=== PATIENT | female | born 1980 | race Caucasian/White ===

== ENCOUNTER 2021-11-17 12:05 | Emergency (ER) | payer OTHER, MEDICAID, SELFPAY ==
[2021-11-17 12:11] VITALS: BP 113/74; PULSE 88; RESP 20; TEMP 36.9; O2SAT 98; BMI 42.3
--- NOTE | 2021-11-17 12:59 | ED_ITS ---
HPI - Dizziness <Alexia Unique [facility] - Last Filed: 11/17/21 16:33> General Chief Complaint: Dizziness Stated Complaint: weak/dizzy Time Seen by Provider: 11/17/21 12:20 Source: patient Mode of arrival: Ambulatory History of Present Illness HPI Narrative: This is a 41-year-old female with history of lupus, PKU, PTSD, anxiety and depression who presents to the emergency department while in town caring for her mother with complaint of episodes of dizziness that have been occurring and causing her to feel lightheaded over the last month. She endorses blurred vision at times, she denies any headache, trauma, fever, abdominal pain, nausea vomiting, dysuria, possibility of . She reports that she has had her tubes tied, she is , reports that she has been under a lot of stress recently, becomes tearful and reports that she is tired of being ?sick when ?all the time. She denies any pain, endorses feeling anxious, has had episodes where she feels lightheaded and like she might faint. She reports that she has been staying hydrated and drinking plenty of water, eating food, she has not had any changes to her bowels or her urination. She denies any abnormal vaginal discharge, denies any hearing changes. She endorses a history of anxiety, states that her depression is likely under treated, gets her care in [facility] from Dr. Nguyen and has [employer] insurance. She reports that she sees Taylor Reynaga who is a family care provider in [place] in the past. She denies any recent fever, COVID symptoms, chest pain, shortness of breath, numbness or tingling or other complaint. Related Data Previous Rx's Medication Instructions Recorded EPINEPHRINE (#EPI EZ PEN) 1 mg IM ONCE ##1 09/15/11 methylphenidate HCl 10 mg tablet 10 mg PO SEE INSTRUCTIONS #90 tabs 03/10/16 (Ritalin) alprazolam 0.5 mg tablet (Xanax) 0.5 mg PO TIDP PRN #5 tabs 03/18/16 topiramate 25 mg tablet (Topamax) 25 mg PO HS #30 tabs 03/29/16 sumatriptan succinate 100 mg 100 mg PO PRN PRN #9 tabs 04/03/16 tablet (Imitrex) prednisone 20 mg tablet 0 PO QDAY #7 tabs 04/04/16 alprazolam 0.5 mg tablet 0.5 mg PO BEDTIME PRN anxiety #10 11/17/21 tabs cephalexin 500 mg tablet 500 mg PO BID 5 days #10 tabs 11/17/21 Allergies Allergy/AdvReac Type Severity Reaction Status Date / Time azithromycin [AZITHROMYCIN] Allergy Unknown Unverified 08/08/17 12:09 Influenza Virus Vaccines Allergy Unknown Unverified 08/08/17 12:09 [INFLUENZA VIRUS VACCINES] Review of Systems <STEPHANIE Genao - Last Filed: 11/17/21 16:33> Review of Systems Narrative: General: denies fever, chills, malaise, sweats, fatigue Head/Neck: denies headache, neck pain, endorses dizziness Eyes: denies visual changes, eye pain reports has had blurred vision in the past Cardio: denies chest pain, palpitations, edema Respiratory: denies dyspnea, cough, orthopnea GI: denies abdominal pain, nausea, vomiting, or diarrhea : denies dysuria, hematuria, urinary retention, frequency or incontinence MSK: denies joint pain, muscle weakness Skin: denies rash, itching, skin lesions or other Neuro: denies numbness, tingling Patient History <STEPHANIE Genao - Last Filed: 11/17/21 16:33> Surgical History Status post tubal ligation Social History Smoking Status: Never smoker Smoking Status: Never smoker alcohol intake frequency: 0-2 drinks per day Exam <STEPHANIE Genao - Last Filed: 11/17/21 16:33> Narrative Exam Narrative: Independently reviewed vitals signs and nursing notes. General: cooperative, comfortable, in no acute distress, well groomed, anxious, tearful, endorses stress Head: atraumatic, symmetrical facial expressions Neck: supple Eyes: equal round and reactive, EOMI, conjunctiva normal Nose: nares patent, no rhinorrhea Mouth/Throat: moist mucus membranes Cardiovascular: regular rate and rhythm, no peripheral edema, warm extremities Respiratory: normal effort, able to speak in complete sentences, no audible whe ezing, stridor, or rales. No retractions or tachypnea. GI: abdomen soft, nontender to palpation, nondistended, no masses, no exquisite tenderness with exam, without guarding or rebound. MSK: moves all extremities, neurovascularly intact, no weakness, normal tone Skin: brisk capillary refill, no rash, no erythema Neuro: normal speech and cognition, A&O x3 Psych: mental status is grossly normal, congruent mood, normal affect, pleasant and cooperative Initial Vital Signs Initial Vital Signs: Vital Signs Temperature 98.4 F 11/17/21 12:11 Pulse Rate 88 11/17/21 12:11 Respiratory Rate 20 11/17/21 12:11 Blood Pressure 113/74 11/17/21 12:11 Pulse Oximetry 98 11/17/21 12:11 Oxygen Delivery Method 11/17/21 12:11 <Neetu Walls DO - Last Filed: 11/18/21 18:40> Initial Vital Signs Initial Vital Signs: Vital Signs Temperature 98.4 F 11/17/21 12:11 Pulse Rate 88 11/17/21 12:11 Respiratory Rate 20 11/17/21 12:11 Blood Pressure 113/74 11/17/21 12:11 Pulse Oximetry 98 11/17/21 12:11 Oxygen Delivery Method 11/17/21 12:11 Course <STEPHANIE Genao - Last Filed: 11/17/21 16:33> Orders Ordered: Discontinued Medications Cephalexin HCl (Cephalexin 250 Mg Capsule) 500 mg PO NOW ONE Stop: 11/17/21 15:13 Last Admin: 11/17/21 15:26 Dose: 500 mg Documented By: JOANNA Lorazepam (Lorazepam 0.5 Mg Tablet) 1 mg PO NOW ONE Stop: 11/17/21 12:59 Last Admin: 11/17/21 13:15 Dose: 1 mg Documented By: RL Vital Signs Vital signs: Vital Signs - 8 hr 11/17/21 12:11 11/17/21 15:38 Temperature 98.4 F Pulse Rate 88 71 Respiratory Rate 20 18 Blood Pressure 113/74 125/65 Pulse Oximetry 98 95 Oxygen Delivery Method Room Air Room Air <Neetu Walls DO - Last Filed: 11/18/21 18:40> Orders Ordered: Discontinued Medications Cephalexin HCl (Cephalexin 250 Mg Capsule) 500 mg PO NOW ONE Stop: 11/17/21 15:13 Last Admin: 11/17/21 15:26 Dose: 500 mg Documented By: JOANNA Lorazepam (Lorazepam 0.5 Mg Tablet) 1 mg PO NOW ONE Stop: 11/17/21 12:59 Last Admin: 11/17/21 13:15 Dose: 1 mg Documented By: RL Vital Signs Vital signs: Vital Signs - 8 hr 11/17/21 12:11 11/17/21 15:38 Temperature 98.4 F Pulse Rate 88 71 Respiratory Rate 20 18 Blood Pressure 113/74 125/65 Pulse Oximetry 98 95 Oxygen Delivery Method Room Air Room Air MDM - Dizziness <STEPHANIE Genao - Last Filed: 11/17/21 16:33> Lab Data Result diagrams: 11/17/21 13:55 11/17/21 13:55 Labs: Lab Results 11/17/21 11/17/21 11/17/21 Range/Units 13:43 13:55 13:55 WBC 4.2 L (4.5-11.0) X10^3/uL RBC 3.51 L (4.0-5.2) X10^6/uL Hgb 11.4 L (12.0-16.0) g/dL Hct 33.8 L (36-46) % MCV 96.4 (80-100) fL MCH 32.5 (26-34) PG MCHC 33.8 (30-36) % RDW 13.8 (11.6-14.8) % Plt Count 205 (150-400) X10^3/uL Neut % (Auto) 69.8 (50-75) % Lymph % (Auto) 23.7 L (25-40) % [place] % (Auto) 5.7 (3-14) % Eos % (Auto) 0.4 L (2-4) % Baso % (Auto) 0.4 (0-2) % Neut # (Auto) 2900 (5915-0050) /uL Lymph # (Auto) 1000 L (6780-8963) /uL [place] # (Auto) 200 (0-900) /uL Eos # (Auto) 0 (0-450) /uL Baso # (Auto) 0 (0-100) /uL Sodium 139 (137-145) mmol/L Potassium 4.5 (3.4-5.1) mmol/L Chloride 108 H (98-107) mmol/L Carbon Dioxide 26 (22-32) mmol/L BUN 9 (7-17) mg/dL Creatinine 0.82 (0.52-1.04) mg/dL Estimated GFR > 60 (>60) mL/min BUN/Creatinine Ratio 11.0 (6-22) Glucose 108 H (70-100) mg/dL Calcium 9.0 (8.4-10.2) mg/dL Magnesium 2.1 (1.6-2.3) mg/dL Total Bilirubin 0.4 (0.2-1.3) mg/dL AST 18 (14-36) IU/L ALT 13 (<35) IU/L Alkaline Phosphatase 48 (38-126) U/L Total Creatine Kinase 67 (30-135) U/L CK-MB (CK-2) TNP CK-MB (CK-2) Rel Index TNP Troponin I < 0.012 (0.01-0.034) ng/mL C-Reactive Protein < 0.5 (<1.0) mg/dL Total Protein 6.2 L (6.3-8.2) g/dL Albumin 4.1 (3.5-5.0) g/dL Globulin 2.1 (1.7-4.1) g/dL Albumin/Globulin Ratio 2.0 (1.0-2.8) TSH (0.47-4.68) uIU/mL Urine Color Yellow Urine Appearance Clear Urine pH 8.0 (4.5-8.0) Ur Specific [place] 1.010 (1.000-1.035) Urine Protein Negative (Negative) Urine Glucose (UA) Negative (Negative) g/dL Urine Ketones Negative (NEGATIVE) Urine Occult Blood 1+ H (Negative) Urine Nitrate Negative (Negative) Urine Bilirubin Negative (NEGATIVE) Urine Urobilinogen 0.2 (0.2) E.U./dL Ur Leukocyte Esterase 1+ H (NEGATIVE) Urine RBC None seen (0-5/HPF) Urine WBC 1-5/hpf (0-5/HPF) Ur Squamous Epith Cells 1-5 /hpf (0-5/HPF) Urine Bacteria None seen (None) Ur Culture Indicated? Specimen cultured 11/17/21 Range/Units 13:55 WBC (4.5-11.0) X10^3/uL RBC (4.0-5.2) X10^6/uL Hgb (12.0-16.0) g/dL Hct (36-46) % MCV (80-100) fL MCH (26-34) PG MCHC (30-36) % RDW (11.6-14.8) % Plt Count (150-400) X10^3/uL Neut % (Auto) (50-75) % Lymph % (Auto) (25-40) % [place] % (Auto) (3-14) % Eos % (Auto) (2-4) % Baso % (Auto) (0-2) % Neut # (Auto) (7599-8513) /uL Lymph # (Auto) (0932-1816) /uL [place] # (Auto) (0-900) /uL Eos # (Auto) (0-450) /uL Baso # (Auto) (0-100) /uL Sodium (137-145) mmol/L Potassium (3.4-5.1) mmol/L Chloride (98-107) mmol/L Carbon Dioxide (22-32) mmol/L BUN (7-17) mg/dL Creatinine (0.52-1.04) mg/dL Estimated GFR (>60) mL/min BUN/Creatinine Ratio (6-22) Glucose (70-100) mg/dL Calcium (8.4-10.2) mg/dL Magnesium (1.6-2.3) mg/dL Total Bilirubin (0.2-1.3) mg/dL AST (14-36) IU/L ALT (<35) IU/L Alkaline Phosphatase (38-126) U/L Total Creatine Kinase (30-135) U/L CK-MB (CK-2) CK-MB (CK-2) Rel Index Troponin I (0.01-0.034) ng/mL C-Reactive Protein (<1.0) mg/dL Total Protein (6.3-8.2) g/dL Albumin (3.5-5.0) g/dL Globulin (1.7-4.1) g/dL Albumin/Globulin Ratio (1.0-2.8) TSH 0.918 (0.47-4.68) uIU/mL Urine Color Urine Appearance Urine pH (4.5-8.0) Ur Specific [place] (1.000-1.035) Urine Protein (Negative) Urine Glucose (UA) (Negative) g/dL Urine Ketones (NEGATIVE) Urine Occult Blood (Negative) Urine Nitrate (Negative) Urine Bilirubin (NEGATIVE) Urine Urobilinogen (0.2) E.U./dL Ur Leukocyte Esterase (NEGATIVE) Urine RBC (0-5/HPF) Urine WBC (0-5/HPF) Ur Squamous Epith Cells (0-5/HPF) Urine Bacteria (None) Ur Culture Indicated? ECG Data Interpretation: EKG independently reviewed by Dr. Walls and myself and reveals normal sinus rhythm at 74 bpm with regular axis and intervals. No STEMI, ST segment changes, arrhythmia, or acute ischemic changes. MDM Narrative Medical decision making narrative: This is a 41-year-old female presents to the emergency department with significant anxiety complaining of episodes of near-syncope and lightheadedness which happened occasionally happening over the last month. Patient reports that she had a significant urinary tract infection approximately three weeks ago for which she completed antibiotics for and she is been having these symptoms of lightheadedness and her description of these episodes sound most like a vasovagal reaction. She has a history of PKU, lupus, anxiety, depression, PTSD, migraines and denies any recent fever, illness, vomiting, but endorses that she is here in town helping take care of her mother and under a significant amount of stress. She reports that she is tired of being the ?sick one ?in the family and does not know why she is still feeling poorly. At home she takes Ritalin and topiramate, and states that she does not have a therapist or counselor at this time. Patient was tearful, tremulous, denies any ingestion of substances or any heavy drinking. Her lab work overall is grossly unremarkable, she has a history of anemia and reports that she is usually borderline normal values, today her hemoglobin is 11.4, hematocrit 33.8 and this is mildly decreased from her prior in 02/2016. Patient has not seen a neurologist in her history, there was no other significant findings on her lab work, liver enzymes are not elevated, magnesium 2.1 electrolytes without abnormality, CRP is less than 0.5, troponin is 0.012, TSH is within normal range at 0.918. Her UA was found to have blood and leukocyte esterase, this was sent for microscopy which showed wbc's and leukocyte esterase without nitrites. Urine was sent for culture. No imaging was completed patient does not have any pain at this time, and no changes to her bowels. Her EKG does not show any ST changes or arrhythmia. Patient's anxiety was treated in the emergency department with lorazepam x1, patient has a history of taking alprazolam but does not currently have any. I gave her a prescription of Xanax to take as needed for her stress, encouraged her to drink an additional 1-2 glasses of water daily to stay hydrated, she was treated for a possible urinary tract infection with cephalexin and encouraged to follow-up with her primary care provider if her symptoms are ongoing and for a test of cure. She denies any abnormal vaginal discharge, has had her tubes tied, states that she struggles with depression anxiety but denies any suicidality. Medical Decision Making: Multiple etiologies of dizziness considered including stroke, PR, PE, electrolyte abnormalities and infection. Based on the information before me these causes seem less likely, patient is atraumatic. Discussed that this could be possible brain tumor or other brain problem and CT imaging could be helpful if her symptoms do not improve with these therapies. Discuss her symptoms may also be due to BPPV, vasovagal or postural hypotension. Patient's vital signs were within normal ranges, she is ambulatory, without fever, without any toxic or emergent finding on exam. Encouraged her to follow-up with Dr. Walter her PCP out of [facility] when she returns. Patient is appropriate and amenable to discharge home. Vital signs are stable on repeat examination is unremarkable. Patient has been informed of results. Patient has been given strict return to ER precautions for any new or worsening symptoms. Patient understands to follow up closely with outpatient providers as instructed. Patient understands plan and agrees to discharge home. All questions and concerns answered at this time. <Neetu Walls, DO - Last Filed: 11/18/21 18:40> Lab Data Labs: Lab Results 11/17/21 11/17/21 11/17/21 Range/Units 13:43 13:55 13:55 WBC 4.2 L (4.5-11.0) X10^3/uL RBC 3.51 L (4.0-5.2) X10^6/uL Hgb 11.4 L (12.0-16.0) g/dL Hct 33.8 L (36-46) % MCV 96.4 (80-100) fL MCH 32.5 (26-34) PG MCHC 33.8 (30-36) % RDW 13.8 (11.6-14.8) % Plt Count 205 (150-400) X10^3/uL Neut % (Auto) 69.8 (50-75) % Lymph % (Auto) 23.7 L (25-40) % [place] % (Auto) 5.7 (3-14) % Eos % (Auto) 0.4 L (2-4) % Baso % (Auto) 0.4 (0-2) % Neut # (Auto) 2900 (2476-4228) /uL Lymph # (Auto) 1000 L (5365-6499) /uL [place] # (Auto) 200 (0-900) /uL Eos # (Auto) 0 (0-450) /uL Baso # (Auto) 0 (0-100) /uL Sodium 139 (137-145) mmol/L Potassium 4.5 (3.4-5.1) mmol/L Chloride 108 H (98-107) mmol/L Carbon Dioxide 26 (22-32) mmol/L BUN 9 (7-17) mg/dL Creatinine 0.82 (0.52-1.04) mg/dL Estimated GFR > 60 (>60) mL/min BUN/Creatinine Ratio 11.0 (6-22) Glucose 108 H (70-100) mg/dL Calcium 9.0 (8.4-10.2) mg/dL Magnesium 2.1 (1.6-2.3) mg/dL Total Bilirubin 0.4 (0.2-1.3) mg/dL AST 18 (14-36) IU/L ALT 13 (<35) IU/L Alkaline Phosphatase 48 (38-126) U/L Total Creatine Kinase 67 (30-135) U/L CK-MB (CK-2) TNP CK-MB (CK-2) Rel Index TNP Troponin I < 0.012 (0.01-0.034) ng/mL C-Reactive Protein < 0.5 (<1.0) mg/dL Total Protein 6.2 L (6.3-8.2) g/dL Albumin 4.1 (3.5-5.0) g/dL Globulin 2.1 (1.7-4.1) g/dL Albumin/Globulin Ratio 2.0 (1.0-2.8) TSH (0.47-4.68) uIU/mL Urine Color Yellow Urine Appearance Clear Urine pH 8.0 (4.5-8.0) Ur Specific [place] 1.010 (1.000-1.035) Urine Protein Negative (Negative) Urine Glucose (UA) Negative (Negative) g/dL Urine Ketones Negative (NEGATIVE) Urine Occult Blood 1+ H (Negative) Urine Nitrate Negative (Negative) Urine Bilirubin Negative (NEGATIVE) Urine Urobilinogen 0.2 (0.2) E.U./dL Ur Leukocyte Esterase 1+ H (NEGATIVE) Urine RBC None seen (0-5/HPF) Urine WBC 1-5/hpf (0-5/HPF) Ur Squamous Epith Cells 1-5 /hpf (0-5/HPF) Urine Bacteria None seen (None) Ur Culture Indicated? Specimen cultured 11/17/21 Range/Units 13:55 WBC (4.5-11.0) X10^3/uL RBC (4.0-5.2) X10^6/uL Hgb (12.0-16.0) g/dL Hct (36-46) % MCV (80-100) fL MCH (26-34) PG MCHC (30-36) % RDW (11.6-14.8) % Plt Count (150-400) X10^3/uL Neut % (Auto) (50-75) % Lymph % (Auto) (25-40) % [place] % (Auto) (3-14) % Eos % (Auto) (2-4) % Baso % (Auto) (0-2) % Neut # (Auto) (9495-2506) /uL Lymph # (Auto) (3137-1650) /uL [place] # (Auto) (0-900) /uL Eos # (Auto) (0-450) /uL Baso # (Auto) (0-100) /uL Sodium (137-145) mmol/L Potassium (3.4-5.1) mmol/L Chloride (98-107) mmol/L Carbon Dioxide (22-32) mmol/L BUN (7-17) mg/dL Creatinine (0.52-1.04) mg/dL Estimated GFR (>60) mL/min BUN/Creatinine Ratio (6-22) Glucose (70-100) mg/dL Calcium (8.4-10.2) mg/dL Magnesium (1.6-2.3) mg/dL Total Bilirubin (0.2-1.3) mg/dL AST (14-36) IU/L ALT (<35) IU/L Alkaline Phosphatase (38-126) U/L Total Creatine Kinase (30-135) U/L CK-MB (CK-2) CK-MB (CK-2) Rel Index Troponin I (0.01-0.034) ng/mL C-Reactive Protein (<1.0) mg/dL Total Protein (6.3-8.2) g/dL Albumin (3.5-5.0) g/dL Globulin (1.7-4.1) g/dL Albumin/Globulin Ratio (1.0-2.8) TSH 0.918 (0.47-4.68) uIU/mL Urine Color Urine Appearance Urine pH (4.5-8.0) Ur Specific [place] (1.000-1.035) Urine Protein (Negative) Urine Glucose (UA) (Negative) g/dL Urine Ketones (NEGATIVE) Urine Occult Blood (Negative) Urine Nitrate (Negative) Urine Bilirubin (NEGATIVE) Urine Urobilinogen (0.2) E.U./dL Ur Leukocyte Esterase (NEGATIVE) Urine RBC (0-5/HPF) Urine WBC (0-5/HPF) Ur Squamous Epith Cells (0-5/HPF) Urine Bacteria (None) Ur Culture Indicated? Discharge Plan Departure Patient Disposition: Home Clinical Impression: Intermittent lightheadedness, Postural dizziness with near syncope Acute cystitis Qualifiers: Hematuria presence: without hematuria Qualified Code(s): N30.00 - Acute cystitis without hematuria Instructions: Acute Cystitis, Orthostatic Hypotension, DI for Orthostatic Hypotension, DI for Vertigo Activity Restrictions/Additional Instructions: *You have been diagnosed with lightheadedness/dizziness and likely a vasovagal reaction, and a bladder infection. Your urine was sent for culture, we will call you in two days if this grows a bacteria that is treated with antibiotic that you are on. Please call your primary care provider and schedule a follow- up visit to discuss your symptoms. I have prescribed for you alprazolam to use as needed for anxiety, I want you to drink an additional 1-2 glasses of water to help fill up your tank and ensure that you are voiding every 3 hours and that your urine is clear. Please urinate frequently to empty your bladder. You can try Dramamine or meclizine as needed if you have persistent dizziness. Please find a therapist that you can start working with to work on you. It is time to start caring for you, and I want you to get the help that you need to help treat your symptoms. We did not find any dangerous causes to your symptoms on your workup today. It does appear that you are mildly anemic compared to your last visit here, your hemoglobin is 11.4, hematocrit is 33.8, your electrolytes are balanced, your liver enzymes are not elevated, your CRP is low, your troponin is negative, your TSH is borderline low, 0.918 but still within range. Please try breathing exercises, mindfulness, meditation, anything to help you maintain control of your thoughts and energy. I hope you feel better soon, please come back to the emergency department if you have any new or worsening symptoms. I am serious about staying hydrated, try hard and see if you still have the symptoms. *What to do: *Please continue to take your regular medications as directed. [ x] New medication prescriptions sent to your pharmacy: [ [facility]] [ ] New medication written as a paper prescription [ ] No new medications given *Please follow up with your primary care provider in 2-3 days, call for an appointment. Let them know you were seen in the Emergency Department and that we asked that you be seen for follow-up. We will electronically transmit a record of today's note if your PCP is in our system *If you do not have a primary care provider please contact [phone] to establish care with one of the [facility] primary care providers. *Return to Emergency Department if you should have any new, worsening or concerning symptoms, such as [fever greater than 101F, chills, worsening pain, persistent vomiting or other bothersome symptoms] Prescriptions: New cephalexin 500 mg tablet 500 mg PO BID 5 Days Qty: 10 0RF alprazolam 0.5 mg tablet 0.5 mg PO BEDTIME PRN (Reason: anxiety) Qty: 10 0RF No Action EPINEPHRINE (#EPI EZ PEN) 1 mg IM ONCE Qty: 1 0RF methylphenidate HCl [Ritalin] 10 MG tablet 10 mg PO SEE INSTRUCTIONS Qty: 90 0RF alprazolam [Xanax] 0.5 MG tablet 0.5 mg PO TIDP PRNQty: 5 0RF topiramate [Topamax] 25 MG tablet 25 mg PO HS Qty: 30 1RF sumatriptan succinate [Imitrex] 100 MG tablet 100 mg PO PRN PRNQty: 9 0RF prednisone 20 MG tablet 0 PO QDAY Qty: 7 0RF Referrals: Taylor Reynaga MD [Non-Staff] - Prabha Cid DO [Primary Care Provider] - Visit Report Forms: Patient Portal/API <Neetu Walls DO - Last Filed: 11/18/21 18:40> Cosign ED Attending Danuta[place] Attestation: I was immediately available in the department for consultation. Documentation has been reviewed.
[2021-11-17] MEDS: LORazepam 0.5 MG TABLET 1 MG PO (13:15)
[2021-11-17 13:56] LABS: Appearance Urine UA CLEAR; Bilirubin Urine UA NEGATIVE (NEGATIVE); Color Urine UA YELLOW; Glucose Urine UA NEGATIVE (Negative); Ketones Urine UA NEGATIVE (NEGATIVE); Leukocyte Esterase Urine UA 1+ (NEGATIVE); Nitrite Urine UA NEGATIVE (Negative); Occult Blood Urine UA 1+ (Negative); Protein Urine UA NEGATIVE (Negative); Urobilinogen Urine UA 0.2 E.U./dL (0.2)
[2021-11-17 14:03] LABS: Add Manual Diff / Slide Review NO; Basophils Absolute Auto 0 /uL (0-100); Basophils Percent Auto 0.4 % (0-2); Eosinophils Absolute Auto 0 /uL (0-450); Eosinophils Percent Auto 0.4 % (2-4); Hematocrit 33.8 % (36-46); Hemoglobin 11.4 g/dL (12.0-16.0); Lymphocytes Absolute Auto 1000 /uL (1100-4500); Lymphocytes Percent Auto 23.7 % (25-40); Mean Corpuscular HGB Conc 33.8 % (30-36); Mean Corpuscular Hemoglobin 32.5 PG (26-34); Mean Corpuscular Volume 96.4 fL (80-100); Monocytes Absolute Auto 200 /uL (0-900); Monocytes Percent Auto 5.7 % (3-14); Neutrophils Absolute Auto 2900 /uL (1500-7000); Neutrophils Percent Auto 69.8 % (50-75); Platelet Count 205 X10^3/uL (150-400); Red Blood Cell Count 3.51 X10^6/uL (4.0-5.2); Red Cell Distribution Width 13.8 % (11.6-14.8); White Blood Cell Count 4.2 X10^3/uL (4.5-11.0)
[2021-11-17 14:15] LABS: Bacteria Urine None Seen; Culture Indicated Urine Specimen Cultured; RBC Urine None Seen (0-5/HPF); Squamous Epithelial Cell Urine 1-5 /HPF (0-5/HPF); WBC Urine 1-5/HPF (0-5/HPF)
[2021-11-17 14:19] LABS: Alanine Aminotransferase 13 IU/L (<35); Albumin 4.1 g/dL (3.5-5.0); Alkaline Phosphatase 48 U/L (38-126); Aspartate Aminotransferase 18 IU/L (14-36); Bilirubin Total 0.4 mg/dL (0.2-1.3); Blood Urea Nitrogen 9 mg/dL (7-17); C-Reactive Protein Quant < 0.5 mg/dL (<1.0); Carbon Dioxide 26 mmol/L (22-32); Chloride 108 mmol/L (98-107); Creatine Kinase 67 U/L (30-135); Estimated Glomerular Filt Rate > 60 mL/min (>60); Globulin 2.1 g/dL (1.7-4.1); Glucose 108 mg/dL (70-100); HEMOLYSIS < 15 (0-50); Magnesium 2.1 mg/dL (1.6-2.3); Potassium 4.5 mmol/L (3.4-5.1); Sodium 139 mmol/L (137-145); Total Protein 6.2 g/dL (6.3-8.2)
[2021-11-17 14:27] LABS: Troponin I < 0.012 ng/mL (0.01-0.034)
[2021-11-17 15:07] LABS: Thyroid Stimulating Hormone 0.918 uIU/mL (0.47-4.68)
[2021-11-17] MEDS: cephALEXin 250 MG CAPSULE 500 MG PO (15:26)
[2021-11-17 15:38] VITALS: BP 125/65; PULSE 71; RESP 18; O2SAT 95
== END 2021-11-17 15:40 | disposition home or self-care (01) ==
PROVIDERS: Emergency Provider Nurse Practitioner Critical Care Medicine; Family Provider Family Medicine; PCP Family Medicine
DX: R42 Dizziness and giddiness (principal); N30.00 Acute cystitis without hematuria; F41.9 Anxiety disorder, unspecified; R79.89 Other specified abnormal findings of blood chemistry; R07.9 Chest pain, unspecified
CPT/HCPCS: 80053; 81001; 82550; 83735; 84443; 84484; 85025; 86140; 87077; 87086; 93005; 93010; 99283; 99284